=== PATIENT | male | born 1960 | race Caucasian/White ===

== ENCOUNTER 2018-05-29 21:45 | Observation (INO) | payer OTHER ==
[2018-05-29 22:26] LABS: PLATELET COUNT 222 10^3/uL (150-400)
[2018-05-29] MEDS ORDERED: ENOXAPARIN 80 MG/0.8 ML SYR SC ONE (22:28)
[2018-05-29] MEDS ORDERED: DILTIAZEM 25 MG/5 ML VIAL IVP ONE (22:28)
[2018-05-29] MEDS ORDERED: DILTIAZEM 125 MG in D5W 125 ML IV ONE (22:28)
--- NOTE | 2018-05-29 22:33 | EDPHY ---
H & P Stated Complaint: new afib ? factor 5 Time Seen by Provider: 05/29/18 22:00 HPI/ROS: Chief Complaint: Palpitations, chest tightness HPI: 58-year-old male with a history of factor 5 Leiden and a DVT in the remote past, takes a baby aspirin daily. Patient began having palpitations with some mild chest tightness at 7:30 a.m. This evening while at rest. He says in the last 6 months he has had 2 episodes of this. First was not Thanksgiving when he was running a 5 K race. His heart was racing and irregular. This lasted for about a day and then resolved. Patient states 2 days ago while jogging he felt this come on again. It lasted for about an hour and then went away. He says earlier today he knows that his heart way was normal according to his apple watch, rate of about 70-80. Abruptly at 7:30 a.m. While at rest he felt the sudden onset of his heart racing and irregular. Is associated mild tightness with some shortness of breath. Does have a family history of father having atrial fibrillation and factor 5 Leiden as well. No leg pain or swelling. No pleuritic chest pain or significant shortness of breath. No recent travel or periods of immobility. He does not smoke. ROS: 10 systems were reviewed and were negative except those elements noted in the HPI. PMH: Factor 5 Leiden on a baby aspirin a day Social History: No smoking, occasional alcohol, occasional marijuana at bedtime Family History: non-contributory Physical Exam: Gen: Awake, Alert, No Distress HEENT: Nose: no rhinorrhea Eyes: PERRLA, EOMI Mouth: Moist mucosa Neck: Supple, no JVD Chest: nontender, lungs clear to auscultation Heart: S1, S2 normal, irregularly irregular, tachycardic Abd: Soft, non-tender, no guarding Back: no CVA tenderness, no midline tenderness Ext: no edema, non-tender Skin: no rash Neuro: CN II-XII intact, Sensation grossly intact, Strength 5/5 in bilateral upper and lower extremities - Personal History Current Tetanus/Diphtheria Vaccine: Yes Current Tetanus Diphtheria and Acellular Pertussis (TDAP): Yes Tetanus Vaccine Date: 2017 - Medical/Surgical History Hx Asthma: No Hx Chronic Respiratory Disease: No Hx Diabetes: No Hx Cardiac Disease: No Hx Renal Disease: No Hx Cirrhosis: No Hx Alcoholism: No Hx HIV/AIDS: No Hx Splenectomy or Spleen Trauma: No Other PMH: Factor 5, blood clot surgery - Social History Smoking Status: Never smoked Constitutional: Initial Vital Signs Temperature (C) 36.9 C 05/29/18 21:54 Heart Rate 114 H 05/29/18 21:54 Respiratory Rate 18 05/29/18 21:54 Blood Pressure 130/80 H 05/29/18 21:54 O2 Sat (%) 94 05/29/18 21:54 O2 Delivery Mode Room Air Allergies/Adverse Reactions: No Known Allergies Allergy (Unverified 11/20/14 18:19) Home Medications: Medication Instructions Recorded Aspirin 81mg (*) 05/29/18 CALCI-MIX 05/29/18 Co Q-10 05/29/18 Fish Oil 1,000 mg Softgel 05/29/18 Medical Decision Making - Diagnostics EKG Interpretation: ECG time 10:02 p.m.. Atrial fibrillation with a ventricular rate of 160, morphology consistent with LVH, ED Course/Re-evaluation: 58-year-old male with intermittent episodes of atrial fibrillation. Currently in AFib with RVR at this point. He does note that symptoms started right at 7: 30 a.m.. He he does have a history of factor 5 Leiden and takes a baby aspirin. I have discussed the patient with Dr. Orozco, cardiology. He is recommending rate control at this time is the think the patient will likely convert on his own. Admit to the hospital so they can consult him on tomorrow and get an echocardiogram. At that time taking come up with a long-term plan for control of his AFib. I have given the patient a shot of Lovenox here. Will start him on a diltiazem drip with initial 10 mg bolus and titrate according to protocol. - Data Points Laboratory Results: Laboratory Results 05/29/18 22:07 05/29/18 05/29/18 05/29/18 22:11 22:07 22:07 WBC RBC Hgb Hct MCV MCH MCHC RDW Plt Count MPV Neut % (Auto) Lymph % (Auto) Russell % (Auto) Eos % (Auto) Baso % (Auto) Nucleat RBC Rel Count Absolute Neuts (auto) Absolute Lymphs (auto) Absolute Monos (auto) Absolute Eos (auto) Absolute Basos (auto) Absolute Nucleated RBC Immature Gran % Immature Gran # D-Dimer Pending Sodium Pending Potassium Pending Chloride Pending Carbon Dioxide Pending Anion Gap Pending BUN Pending Creatinine Pending Estimated GFR Pending Glucose Pending Calcium Pending POC Troponin I 0.01 ng/mL ng/mL (0.00-0.08) 05/29/18 22:07 WBC 6.01 10^3/uL 10^3/uL (3.80-9.50) RBC 4.67 10^6/uL 10^6/uL (4.40-6.38) Hgb 14.9 g/dL g/dL (13.7-17.5) Hct 42.9 % % (40.0-51.0) MCV 91.9 fL fL (81.5-99.8) MCH 31.9 pg pg (27.9-34.1) MCHC 34.7 g/dL g/dL (32.4-36.7) RDW 12.6 % % (11.5-15.2) Plt Count 222 10^3/uL 10^3/uL (150-400) MPV 8.9 fL fL (8.7-11.7) Neut % (Auto) 53.7 % % (39.3-74.2) Lymph % (Auto) 30.4 % % (15.0-45.0) Russell % (Auto) 14.1 % H % (4.5-13.0) Eos % (Auto) 0.7 % % (0.6-7.6) Baso % (Auto) 0.8 % % (0.3-1.7) Nucleat RBC Rel Count 0.0 % % (0.0-0.2) Absolute Neuts (auto) 3.22 10^3/uL 10^3/uL (1.70-6.50) Absolute Lymphs (auto) 1.83 10^3/uL 10^3/uL (1.00-3.00) Absolute Monos (auto) 0.85 10^3/uL H 10^3/uL (0.30-0.80) Absolute Eos (auto) 0.04 10^3/uL 10^3/uL (0.03-0.40) Absolute Basos (auto) 0.05 10^3/uL 10^3/uL (0.02-0.10) Absolute Nucleated RBC 0.00 10^3/uL 10^3/uL (0-0.01) Immature Gran % 0.3 % % (0.0-1.1) Immature Gran # 0.02 10^3/uL 10^3/uL (0.00-0.10) D-Dimer Sodium Potassium Chloride Carbon Dioxide Anion Gap BUN Creatinine Estimated GFR Glucose Calcium POC Troponin I Point of Care Test Results: Chemistry 05/29/18 22:11 POC Troponin I 0.01 ng/mL ng/mL (0.00-0.08) Departure - Departure Disposition: [facility] Inpatient Acute Clinical Impression: Atrial fibrillation Condition: Fair Referrals: Henry Valerio DO [Primary Care Provider] - As per Instructions
[2018-05-29] MEDS ORDERED: ONDANSETRON 4 MG/2 ML VIAL IVP PRN (22:48)
[2018-05-29] MEDS ORDERED: ACETAMINOPHEN 325 MG TAB PO PRN (22:48)
[2018-05-29] MEDS ORDERED: ONDANSETRON DISINTEGRATING 4 MG TAB PO PRN (22:48)
[2018-05-29] MEDS ORDERED: DILTIAZEM HCL/D5W 125 ML IV SCH (23:00)
[2018-05-29] MEDS ORDERED: DILTIAZEM HCL/D5W 125 ML IV ONE (23:00)
--- NOTE | 2018-05-29 23:44 | PDGENHP ---
History and Physical - Chief Complaint Palpitations - History of Present Illness 58 yo M w/ hx of AF and FVL presents with palpitations. Around 7 PM tonight he noted palpitations. He looked at his fitness watch and noted tachycardia so he came in to the ED. He states this last occurred in March and self-resolved quickly. His only daily medication is an aspirin. Several family members have atrial fibrillation. He last had a blood clot in his right leg in 2001; he has not been on anticoagulation for a long time. Currently he is comfortable but thinks he might have a mild cold noting subjective chills and rhinorrhea. Case discussed with ED physician Dr. Cowan; records reviewed and summarized above. History Information - Allergies/Home Medication List Allergies/Adverse Reactions: No Known Allergies Allergy (Unverified 11/20/14 18:19) Home Medications: Aspirin 81mg (*) 05/29/18 [Last Taken Unknown] CALCI-MIX 05/29/18 [Last Taken Unknown] Co Q-10 05/29/18 [Last Taken Unknown] Fish Oil 1,000 mg Softgel 05/29/18 [Last Taken Unknown] I have personally reviewed and updated: family history, medical history - Past Medical History atrial fibrillation Additional medical history: FVL - Surgical History Reports: no pertinent surgical hx - Family History Additional family history: Atrial fibrillation in father and brother - Social History Smoking Status: Never smoked Review of Systems Review of Systems: ROS: 10pt was reviewed & negative except for what was stated in HPI & below Physical Exam Physical Exam: Temp Pulse Resp BP Pulse Ox 36.9 C 108 H 20 98/70 L 96 05/29/18 23:16 05/29/18 23:16 05/29/18 23:16 05/29/18 23:16 05/29/18 23:16 Constitutional: no apparent distress, not in pain Eyes: PERRL, EOMI Ears, Nose, Mouth, Throat: moist mucous membranes, no oral mucosal ulcers Cardiovascular: irregularly irregular, tachycardia Respiratory: no respiratory distress, clear to auscultation Gastrointestinal: normoactive bowel sounds, soft, non-tender abdomen Skin: warm, normal color Musculoskeletal: full muscle strength, no muscle tenderness Neurologic: AAOx3, CN II-XII Intact Psychiatric: interacting appropriately, not anxious Lab Data & Imaging Review 05/29/18 22:07 05/29/18 22:07 WBC 6.01 10^3/uL (3.80-9.50) 05/29/18 22:07 RBC 4.67 10^6/uL (4.40-6.38) 05/29/18 22:07 Hgb 14.9 g/dL (13.7-17.5) 05/29/18 22:07 Hct 42.9 % (40.0-51.0) 05/29/18 22:07 MCV 91.9 fL (81.5-99.8) 05/29/18 22:07 MCH 31.9 pg (27.9-34.1) 05/29/18 22:07 MCHC 34.7 g/dL (32.4-36.7) 05/29/18 22:07 RDW 12.6 % (11.5-15.2) 05/29/18 22:07 Plt Count 222 10^3/uL (150-400) 05/29/18 22:07 MPV 8.9 fL (8.7-11.7) 05/29/18 22:07 Neut % (Auto) 53.7 % (39.3-74.2) 05/29/18 22:07 Lymph % (Auto) 30.4 % (15.0-45.0) 05/29/18 22:07 [place] % (Auto) 14.1 % (4.5-13.0) H 05/29/18 22:07 Eos % (Auto) 0.7 % (0.6-7.6) 05/29/18 22:07 Baso % (Auto) 0.8 % (0.3-1.7) 05/29/18 22:07 Nucleat RBC Rel Count 0.0 % (0.0-0.2) 05/29/18 22:07 Absolute Neuts (auto) 3.22 10^3/uL (1.70-6.50) 05/29/18 22:07 Absolute Lymphs (auto) 1.83 10^3/uL (1.00-3.00) 05/29/18 22:07 Absolute Monos (auto) 0.85 10^3/uL (0.30-0.80) H 05/29/18 22:07 Absolute Eos (auto) 0.04 10^3/uL (0.03-0.40) 05/29/18 22:07 Absolute Basos (auto) 0.05 10^3/uL (0.02-0.10) 05/29/18 22:07 Absolute Nucleated RBC 0.00 10^3/uL (0-0.01) 05/29/18 22:07 Immature Gran % 0.3 % (0.0-1.1) 05/29/18 22:07 Immature Gran # 0.02 10^3/uL (0.00-0.10) 05/29/18 22:07 D-Dimer 0.40 ug/mLFEU (0.00-0.50) 05/29/18 22:07 Sodium 139 mEq/L (135-145) 05/29/18 22:07 Potassium 4.1 mEq/L (3.5-5.2) 05/29/18 22:07 Chloride 106 mEq/L (97-110) 05/29/18 22:07 Carbon Dioxide 23 mEq/l (22-31) 05/29/18 22:07 Anion Gap 10 mEq/L (6-14) 05/29/18 22:07 BUN 20 mg/dL (7-23) 05/29/18 22:07 Creatinine 0.9 mg/dL (0.7-1.3) 05/29/18 22:07 Estimated GFR > 60 05/29/18 22:07 Glucose 110 mg/dL (70-100) H 05/29/18 22:07 Calcium 9.7 mg/dL (8.5-10.4) 05/29/18 22:07 Magnesium 2.1 mg/dL (1.6-2.3) 05/29/18 22:07 POC Troponin I 0.01 ng/mL (0.00-0.08) 05/29/18 22:11 Visualized and Interpreted EKG results: Yes EKG Interpretation: Positive for: other (AF w/ RVR) Assessment & Plan Assessment: 58 yo M w/ AF and FVL presents with AF w/ RVR. Plan: 1. Paroxysmal AF w/ RVR - Episode onset around 7 PM on night of admission; no prior incidents since March. The patient is only on ASA as outpatient w/ [id number] of 0. - Admit to PCU for observation - Monitor on telemetry - Obtain TTE - Diltiazem gtt - S/p Lovenox SQ x1, will redose in the morning as well - Cardiology consulted in the ED, will see patient in the morning - NPO @ MN in case he requires cardioversion 2. Hx FVL - With DVT in 2001, he has not been on AC for many years without any subsequent clots. Diet - NPO @ MN Code - Full Ppx - Lovenox therapeutic dosing Dispo - Admit under observation status
--- NOTE | 2018-05-30 00:33 | CPEKG ---
Test Reason : OPEN Blood Pressure : / mmHG Vent. Rate : 160 BPM Atrial Rate : 154 BPM P-R Int : 109 ms QRS Dur : 092 ms QT Int : 289 ms P-R-T Axes : 262 078 -21 degrees QTc Int : 472 ms Atrial fibrillation Left ventricular hypertrophy Repolarization abnormality, prob rate related Confirmed by Gary Cowan ([id number]) on 05/30/2018 12:32:43 AM Referred By: Confirmed By:Gary Cowan
[2018-05-30 05:06] LABS: PLATELET COUNT 193 10^3/uL (150-400)
[2018-05-30 07:24] VITALS: BP 120/71
[2018-05-30] MEDS ORDERED: ENOXAPARIN 80 MG/0.8 ML SYR SC ONE (09:00)
[2018-05-30] MEDS ORDERED: METOPROLOL TARTRATE 25 MG TAB PO SCH (10:15)
--- NOTE | 2018-05-30 10:55 | ECHO ---
[email or web address] [address] [address] Main: [phone] Fax: Transthoracic Echocardiogram Name: ETHAN PEGUERO MR#: [id number] Study Date: 05/30/2018 Study Time: 07:27 AM Date of : 1960 Age: 58 year(s) Height: 190.5 cm (75 in.) Weight: 69.85 kg (154 lb.) BSA: 1.96 m2 Gender: Male Examination: Echo Indication: Atrial Fibrillation Image Quality: Adequate Contrast: Requested by: Bryant Martinez BP: 120 mmHg/71 mmHg Heart Rate: Rhythm: Indication: Atrial Fibrillation Procedure [facility] Consultant: Katelynn Palomino RDCS Reading Physician: Trang Ham MD Requesting Provider: Conclusions: Normal size left ventricle. No LV hypertrophy. Normal global systolic LV function. The ejection fraction is estimated to be 60-65 %. No regional wall motion abnormality. Normal diastolic LV function. Normal size right ventricle. Normal RV function. Mild mitral valve regurgitation is present. Mild tricuspid regurgitation is present. The pulmonary artery pressure is normal. No prior echo Measurements: Chambers Valvular Assessment AV/MV Valvular Assessment TV/PV Normal Normal Normal Name Value Range Name Value Range Name Value Range Ao Valeria (2D): 3.7 cm (1.4 cm-2.6 AV Vmax: 95.00 m/s (1 m/s-1.7 TR Vmax: 2.19 mm/s ( - ) cm) m/s) TR PGmax: 19 mmHg ( - ) IVSd (2D): 0.8 cm (0.6 cm-1.1 AV meanP mmHg ( - ) syst. PAP: 24 mmHg ( - ) cm) MV E Vmax: 0.48 m/s ( - ) LVDd (2D): 4.7 cm (4.2 cm-5.9 MV A Vmax: 0.44 m/s ( - ) cm) MV E/A: 1.09 ( - ) LVDs (2D): 3.0 cm (2.1 cm-4 cm) LVPWd (2D): 0.8 cm (0.6 cm-1 cm) LVEF (BP): 68 % (>=55 %) EF Range: 60-65 % Patient: ETHAN PEGUERO Study Date: 05/30/2018 Page 1 of 2 07:27 AM Continued Measurements: Chambers Valvular Assessment AV/MV Valvular Assessment TV/PV Name Value Name Value Name Value LADs: 3.2 cm MV E' Septal: 0.07 m/s CVP (est.): 5 mmHg LADs Lon.3 cm MV E/E' Septal: 7.10 LA Area: 21.2 cm2 MV E/E' Lateral: 5.10 LA Volume: 52 ml LA Volume Index: 26.5 ml/m2 Additional Vessels Name Value Ao Ascendin.2 cm Findings: Left Ventricle: Normal size left ventricle. No LV hypertrophy. Normal global systolic LV function. The ejection fraction is estimated to be 60-65 %. No regional wall motion abnormality. Normal diastolic LV function. Right Ventricle: Normal size right ventricle. Normal RV function. Left Atrium: The left atrium is normal in size. Right Atrium: The right atrium is normal in size. Mitral Valve: The mitral valve is normal in appearance and function. Mild mitral valve regurgitation is present. Aortic Valve: The aortic valve is normal in appearance and function. The aortic valve is tri-leaflet. Trivial aortic valve regurgitation. Tricuspid Valve: The tricuspid valve is normal in appearance and function. Mild tricuspid regurgitation is present. The pulmonary artery pressure is normal. Pulmonic Valve: Pulmonary valve not well visualized. Aorta: The aorta is normal. Pericardium: No pericardial effusion. (No Signature Object) Patient: ETHAN PEGUERO Study Date: 05/30/2018 Page 2 of 2 07:27 AM [id number]
--- NOTE | 2018-05-30 11:34 | HOSPPROG ---
Hospitalist Progress Note Assessment/Plan: 58 yo M w pAF here w rcurrent AF now in sinus home today see dc summary Subjective: in sinus. tolerated BB Objective: Vital Signs Temp Pulse Resp BP Pulse Ox 37.0 C 70 12 120/71 96 05/30/18 07:24 05/30/18 07:24 05/30/18 07:24 05/30/18 07:24 05/30/18 07:24 Laboratory Results 05/30/18 04:20 05/30/18 04:20 05/29/18 05/30/18 05/31/18 05:59 05:59 05:59 Intake Total 260 Balance 260 - Physical Exam Constitutional: no apparent distress, appears nourished Eyes: PERRL, anicteric sclera Ears, Nose, Mouth, Throat: moist mucous membranes, hearing normal Cardiovascular: regular rate and rhythym, no murmur, rub, or gallop, No systolic murmur Respiratory: no respiratory distress, no rales or rhonchi Gastrointestinal: normoactive bowel sounds, soft, non-tender abdomen Genitourinary: no bladder fullness Skin: warm, normal color Musculoskeletal: full muscle strength Neurologic: AAOx3 ICD10 Worksheet Patient Problems: Problems Problem Status Onset Atrial fibrillation Acute
--- NOTE | 2018-05-30 12:08 | ASDISCHSUM ---
Discharge Information Plan Status:Home with No Needs Medically Cleared to Leave:05/29/2018 Discharge Date:05/29/2018 CM D/C Disposition:Home, Routine, Self-Care ADT D/C Disposition: Projected Discharge Date:05/29/2018 Transportation at D/C: Discharge Delay Reason: Follow-Up Date:05/29/2018 Discharge Slot: Final Diagnosis: Placement Information Patient Contact Information Contact Name:FELIPE Relationship: Address: Work Phone: City:[place] Alternate Phone: [facility] Code:FARIDA Email: Financial Information Financial Class:BCOP Primary Plan Desc:HELDER SRIVASTAVA PPO O Primary Plan Number:[id number] Secondary Plan Desc: Secondary Plan Number: Assessment Information LACE LACE Length of stay for Answers: Less than 1 day current admission Acuity / Level of Answers: No Care: Did the patient have an inpatient admission? Comorbidities - select Answers: Other Notes: Factor 5 Leiden; Hx of all that apply DVT # of Emergency department Answers: 1-2 visits in the last 6 months Score: 2 Date Signed: 05/30/2018 12:06 PM Electronically Signed By:Adri Ariza RN Intervention Information
--- NOTE | 2018-05-30 12:12 | GCON ---
DATE OF CONSULTATION: 05/30/2018 REFERRING PHYSICIAN: Bryant Angel MD REASON FOR CONSULTATION: We are asked by Dr. Angel to evaluate the patient for his new onset a trial fibrillation. HISTORY OF PRESENT ILLNESS: The patient is a 58-year-old male with a past medical history of prediab etes who was admitted yesterday for new onset atrial fibrillation. He reports that in March, he s tarted to note palpitations. At that time, he started training for their turkey trot, which is a 5 K race. With some of his runs, he would note that his heart rate would increase above the typical ran ge on his apple watch. Additionally, he would note associated tingling in his cheeks and fingers and would feel presyncopal. After the work outs, he would note feeling like his heart was tired and he had over-exerted. He reports 4/6 of the training runs that he did would have those symptoms. On the day of the turkey trot, which he ran in [place], approximately 1.2 miles into the race, he felt his heart was racing. Due to this, he stopped running and walked the rest of the race. This past Monday again, he had gone for run and 7 minutes into the run, he felt like his heart rate was increased. W ith stopping running and walking, symptoms seem to subside. He admits to having higher stress recent ly. His mother has and there have been issues with her estate, which has increased his s tress level. When he does feel that he is under stress, his heart is racing and irregular. Yesterda y, he had returned home after a happy hour and started to note that his heart was racing. Due to marco a oing symptoms, he presented to the emergency department, was found to be in new onset atrial fibrilla tion. At approximately 2347, he converted to sinus rhythm. Currently, he reports feeling well. He denies any recent viral illness. He consumes 3 to 4 ounces o f wine or beer 3 to 4 times a week. He does not feel he has sleep apnea. He is lives alone. He typ ically gets physicals with his primary care physician. He usually gets annual labs through [facility]. PAST MEDICAL HISTORY: 1. Paroxysmal atrial fibrillation. 2. Prediabetes with last A1c measured at 6%. 3. Heterozygote for factor V Leiden mutation. 4. Previous DVT in 2001, treated with warfarin. PAST SURGICAL HISTORY: Previous vasectomy. SOCIAL HISTORY: Patient is a never smoker. He is retired. He used to work as an explosive expert. FAMILY HISTORY: Atrial fibrillation in father. He at age 86 of dementia and other medical prob lems. He is the oldest of 6 boys and the second oldest has paroxysmal atrial fibrillation. His moth er at age 78. She had diabetes. REVIEW OF SYSTEMS: As per HPI. A complete 10-point review of systems was obtained and is negative, except for what is dictated in HPI. OUTPATIENT MEDICATIONS: Include fish oil, aspirin. ALLERGIES: No known drug allergies. PHYSICAL EXAMINATION: VITAL SIGNS: BP of 120/71, heart rate of 70, respirations 12, O2 saturation 9 6% on room air, temp of 98.6 degrees Fahrenheit. GENERAL: He is a very pleasant male in no apparent distress. HEENT: Normocephalic, atraumatic. Eyes without scleral icterus. NECK: Supple with no JVD. No carotid bruits. HEART: Regular rate and rhythm. No rubs, gallops, or murmurs. LUNGS: Cl ear to auscultation bilaterally. ABDOMEN: Soft with normoactive bowel sounds. : With no Edwards p resent. SKIN: Warm and dry with no edema present. PSYCH: Normal mood and affect for given situati on. NEURO: No focal deficits detected. LABORATORY/IMAGING: BMP with sodium 136, potassium 3.8, chloride 105, CO2 26, BUN 18, creatinine 0.8 , glucose 105. Troponin less than 0.01. Magnesium 2. WBC of 3.73, hemoglobin 13.8, hematocrit 40.5 , platelet count of 193. He had a 12-lead ECG personally interpreted demonstrates atrial fibrillation with rapid ventricular r ates at 160. There is LVH by voltage. I discussed the patient's care with Dr. Oneal Love. Telemetry shows conversion to sinus rhythm a nd maintenance since 2346. Before that, he was having atrial fibrillation, RVR. IMPRESSION/PLAN: The patient is a 58-year-old male who presents with palpitations. 1. Paroxysmal atrial fibrillation. He has converted to sinus rhythm. He reports onset of symptoms of palpitations since March. We discussed several options. Given his onset of symptoms with exer tion and stress, we will start him on low-dose metoprolol at 12.5 b.i.d. We reviewed possible side e ffects. He will be enrolled in our Atrial Fibrillation Clinic for future management of this. 2. Prediabetes. This has been managed with diet. He is on no hypoglycemic agents at this point. 3. CHADS2-VASc of 0 to 1. We will continue with aspirin for thromboembolic prophylaxis. /[id number]/MODL
--- NOTE | 2018-05-30 22:27 | GDS ---
DISCHARGE DIAGNOSES: 1. Paroxysmal atrial fibrillation. 2. Factor V Leiden. Please see admission history and physical by Dr. Bryant Angel. Patient presented with palpit ation consistent with his prior episodes of A-fib. He is an avid runner, but it sounds like it is mo derate in nature. 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 He had negative troponins and nonischemic EKG. Started on diltiazem drip. Converted on his own. TSH is pending. He is started on a beta fernie. [id number]. He takes a baby aspirin. He is discharged home with outpatient followup in the A- fib clinic. /[id number]/MODL
== END 2018-05-30 12:40 | disposition home or self-care (01) ==
LOC: F2W 23:33
PROVIDERS: ADMIT Student in an Organized Health Care Education/Training Program; ATTEND Internal Medicine
DX: I48.0 Paroxysmal atrial fibrillation (principal); D68.2 Hereditary deficiency of other clotting factors; Z86.718 Personal history of other venous thrombosis and embolism; Z82.49 Family history of ischemic heart disease and other diseases of the circulatory system
CPT/HCPCS: 93005; 93306; 96372; 96374; 99285; G0378; 84484-ER; J1650

== ENCOUNTER → 2018-08-22 | Outpatient (CLI) | payer OTHER ==
[~2018-08-22] MED LIST: IOPAMIDOL (ISOVUE 370) 100 ML BTL IV ONE
== END ==
LOC: FIMAGING 08:34
PROVIDERS: ATTEND Internal Medicine Cardiovascular Disease
DX: I48.91 Unspecified atrial fibrillation (principal)
CPT/HCPCS: Q9967

== ENCOUNTER 2018-08-28 10:43 | Observation (INO) | payer OTHER ==
[2018-08-28] MEDS ORDERED: NS 1,000 ML IV ONE (10:49)
[2018-08-28 11:29] LABS: PLATELET COUNT 196 10^3/uL (150-400)
[2018-08-28 11:41] LABS: INR 1.05 (0.83-1.16); PROTIME(PATIENT) 13.3 SEC (12.0-15.0)
[2018-08-28] MEDS ORDERED: HEPARIN/DEXTROSE 25,000 UNIT/500 ML BAG ONE (12:41)
[2018-08-28] MEDS ORDERED: BUPIVACAINE 0.75% 10 ML SDV ONE (12:41)
[2018-08-28] MEDS ORDERED: IOPAMIDOL (ISOVUE-300) 100 ML BTL ONE (12:41)
[2018-08-28] MEDS ORDERED: LIDOCAINE 1% 300 MG/30 ML SDV ONE (12:41)
[2018-08-28] MEDS ORDERED: MIDAZOLAM 2 MG/2 ML VIAL IVP ONE (12:46)
--- NOTE | 2018-08-28 12:48 | PDANEPAE ---
ANE History of Present Illness here for AF/CARLYLE ablation ANE Past Medical History Past Medical History: factor v leiden, history of DVT - Cardiovascular History Hx Hypertension: No Hx Arrhythmias: Yes Hx Chest Pain: No Hx Coronary Artery / Peripheral Vascular Disease: No Hx CHF / Valvular Disease: No Hx Palpitations: No - Pulmonary History Hx COPD: No Hx Asthma/Reactive Airway Disease: No Hx Recent Upper Respiratory Infection: No Hx Oxygen in Use at Home: No Hx Sleep Apnea: No - Neurologic History Hx Cerebrovascular Accident: No Hx Seizures: No Hx Dementia: No - Endocrine History Hx Diabetes: No - Renal History Hx Renal Disorders: No - Liver History Hx Hepatic Disorders: No - Neurological & Psychiatric Hx Hx Neurological and Psychiatric Disorders: No - Chronic Pain History Chronic Pain: No ANE Review of Systems Review of systems is: negative Review of Systems: - Exercise capacity Exercise capacity: >=4 METS ANE Patient History - Allergies Allergies/Adverse Reactions: No Known Allergies Allergy (Verified 08/21/18 14:40) - Home Medications Home medications: home medication list seen and reviewed Home Medications: Aspirin [Aspirin 81mg (*)] 81 mg PO DAILY 05/30/18 [Last Taken 05/29/18] Herbals/Supplements -Info Only 1 ea PO DAILY 05/30/18 [Last Taken 05/29/18] Apixaban [Eliquis] 5 mg PO BID 08/21/18 [Last Taken Unknown] Omeprazole 40 mg PO DAILY 08/21/18 [Last Taken Unknown] - NPO status NPO Status: no food or drink >8 hours - Anes Hx Anes Hx: no prior problems - Smoking Hx Smoking Status: Never smoked ANE Labs/Vital Signs - Labs Result Diagrams: 08/28/18 11:15 08/28/18 11:15 - Vital Signs Vital Signs: reviewed preoperatively; see RN documention for details Height: 190.5 cm Weight: 69.4 kg ANE Physical Exam - Airway Neck exam: FROM Mallampati Score: Class 1 - Pulmonary Pulmonary: no respiratory distress - Cardiovascular Cardiovascular: regular rate and rhythym - ASA Status ASA Status: II ANE Anesthesia Plan Anesthesia Plan: general endotracheal anesthesia
[2018-08-28] MEDS ORDERED: HEPARIN 10,000 UNIT/10 ML MDV (1,000 UNIT/ML) ONE (12:51)
[2018-08-28] MEDS ORDERED: MIDAZOLAM 2 MG/2 ML VIAL ONE (12:52)
--- NOTE | 2018-08-28 13:01 | PDGENHP ---
History & Physical Chief Complaint: Atrial fibrillation and atrial flutter History of Present Illness: Paroxysmal atrial fibrillation and atrial flutter, symptomatic Relevant Physical Exam: A&Ox4, no apparent distress, lungs CTA, regular rate and rhythm, S1, S2, pulses 2+ bilaterally, no edema Cardiorespiratory Assessment: Proceed with AF and atrial flutter ablation as planned for today
[2018-08-28] MEDS ORDERED: PROPOFOL/EMULSION 500 MG/50 ML BOTTLE IV ONE ×2 (13:02→14:21)
[2018-08-28] MEDS ORDERED: fentaNYL 100 MCG/2 ML INJ ONE ×2 (13:03→14:15)
[2018-08-28] MEDS ORDERED: PHENYLEPHRINE HCL 100 MCG/ML SYR ONE (14:16)
[2018-08-28] MEDS ORDERED: ePHEDrine SULFATE 25 MG/5 ML SYR ONE ×2 (14:16→14:52)
--- NOTE | 2018-08-28 14:45 | CPEKG ---
Test Reason : OPEN Blood Pressure : / mmHG Vent. Rate : 072 BPM Atrial Rate : 070 BPM P-R Int : 166 ms QRS Dur : 090 ms QT Int : 390 ms P-R-T Axes : 076 082 055 degrees QTc Int : 427 ms Sinus rhythm Confirmed by Christophe Huerta ([id number]) on 08/28/2018 2:44:53 PM Referred By: Douglas Vega Confirmed By:Christophe Huerta
[2018-08-28] MEDS ORDERED: PROTAMINE SULFATE 50 MG/5 ML VIAL IVP ONE (15:04)
--- NOTE | 2018-08-28 16:31 | EPPROC ---
Electrophysiology Procedure Note: ELECTROPHYSIOLOGIC STUDY AND BALLOON-CATHETER MEDIATED CRYOABLATION FOR PAROXYSMAL ATRIAL FIBRILLATION AND ATRIAL FLUTTER Procedures performed: 02453-98 EP evaluation with RA/RV/LA pace/record, with arrhythmia induction 94259-05 EP evaluation with RA/RV pace record, insert/reposition catheter, with arrhythmia induction 83084 Atrial fibrillation ablation Second arrhythmia Intracardiac echocardiogram Transseptal puncture Fluoroscopy INDICATION: Paroxysmal atrial fibrillation Atrial flutter PROCEDURE: The patient arrived in the Electrophysiology Laboratory in the fasting state. The right groin, left groin and right infraclavicular area were prepped and draped in the usual sterile fashion. Anesthesiologist administered general anesthesia Dr. Hemalatha Nicole. All catheters were placed percutaneously using the Seldinger technique and advanced into position under fluoroscopic guidance. One #7 [place] deflectable octapolar electrode catheter was placed in the His-bundle position via the left femoral vein (2mm spacing, IVC electrode for unipolar recordings). This catheter was placed in the coronary sinus after transseptal puncture and later placed in the SVC-R subclavian vein junction to pace the right phrenic nerve during right pulmonary vein ablation. One #8 [place] AcuNaV ultrasound catheter was placed in the left femoral vein and advanced into the right atrium. Programmed stimulation was performed from the right atrium, left atrium (CS) and right ventricle. Intracardiac echo evaluation of the left atrium and pulmonary veins was performed. Baseline ACT was drawn and heparin bolus was administered and heparin drip was started prior to transseptal puncture. ACT was checked every 15 minutes and maintained in the range of 350-400 seconds. One 14Fr short sheath was placed in the right femoral vein. One 8Fr SL1 sheath was advanced into the right atrium via the 14Fr short sheath. Transseptal puncture was performed under intracardiac ultrasound, fluoroscopic and hemodynamic guidance placing the sheath into the left atrium. ePrimeCare RF needle ( C0 curve) was used. The mean left atrial pressure was 20 mmHg. The SL1 sheath was exchanged for a Medtronic Flexcath sheath using an Amplatz stiff guide wire. A 28 mm Cryoballoon catheter with a 20 mm Achieve catheter was placed via the sheath into the left atrium. Intracardiac ultrasound and PV angiograms were used to assist in placing the mapping catheter at the antrum of the pulmonary veins. All pulmonary veins were isolated successfully using cryoballoon ablation using freeze/thaw/freeze cycles at 2-3-minute intervals, with good [id number] of isolation. Coumadin ridge/Ligament of [place] region was ablated. Pre and post pulmonary vein recordings were measured on the spiral Achieve catheter to ensure complete pulmonary vein isolation. During the right-sided ablation, phrenic nerve pacing was performed to assess the phrenic nerve strength ( manually and with ICE visualization of liver movement during phrenic capture) and the phrenic nerve was intact throughout the right-sided ablation and at the end of the procedure. An esophageal temperature probe (12 electrode, Circa) was placed by the anesthesiologist at the beginning of the procedure. Esophageal temperature was monitored continuously and cryoablation was interrupted if esophageal temperature was <15 C. Cryoapplications 8 total cryoablation time 1203 s. Post AFIB ablation, sheath was changed to Mobi sheath , 3D and ICE map of CT isthmus obtained and ablation performed in the CT isthmus at 0630 as seen in the BELARUSIAN view. Halo catheter was placed prior along TA. Bidirectional conduction block was achieved but patient did develop AF that required DCCV x 3. Ablation was difficult since CT isthmus was small with a subeustachian pouch. ICE imaging post ablation was consistent with pre ablation imaging with no changes noted, moreover there was no left atrial/left ventricular thrombus and no pericardial effusion. The catheters were withdrawn. Protamine was given. Venous vascular access sheaths were removed in the EP lab after placing subcutaneous pursestring suture. The patient was recovered from anesthesia. There were no complications. The patient was arousable and moving all four extremities at the end of the procedure. CONCLUSIONS: 1. Early persistent atrial fibrillation. 2. Successful pulmonary vein isolation procedure (left and right pulmonary vein antrum) using cryoballoon ablation. 3. Cavotricuspid isthmus ablation for atrial flutter, bidirectional block achieved. 4. No apparent complications. Patient Problems: Problems Problem Status Onset Atrial fibrillation Acute
--- NOTE | 2018-08-28 17:04 | POSTANESTH ---
Post Anesthetic Evaluation Cardiovascular Status: Normal, Stable Respiratory Status: Normal, Stable Level of Consciousness/Mental Status: Can Participate in Eval Pain Control: Adequate, Prn Tx Ordered Nausea/Vomiting Control: Adequate, Prn Tx Ordered Complications Possibly Related to Anesthesia: None Noted
[2018-08-28 19:46] LABS: PLATELET COUNT 176 10^3/uL (150-400)
[2018-08-28] MEDS ORDERED: NS BOLUS 500 ML (Wide open) IV ONE ×2 (20:00→20:30)
[2018-08-28] MEDS: APIXABAN 5 MG TAB PO SCH (21:21)
[2018-08-28 23:58] LABS: PLATELET COUNT 162 10^3/uL (150-400)
[2018-08-29] MEDS ORDERED: NS 1,000 ML IV ONE (01:30)
[2018-08-29 06:18] LABS: PLATELET COUNT 160 10^3/uL (150-400)
[2018-08-29] MEDS: APIXABAN 5 MG TAB PO SCH (08:04)
[2018-08-29 08:07] VITALS: BP 107/72
[2018-08-29] MEDS ORDERED: PANTOPRAZOLE SODIUM 40 MG TAB PO SCH (09:00)
--- NOTE | 2018-08-29 09:10 | CPEKG ---
Test Reason : OPEN Blood Pressure : / mmHG Vent. Rate : 086 BPM Atrial Rate : 086 BPM P-R Int : 140 ms QRS Dur : 099 ms QT Int : 380 ms P-R-T Axes : -30 080 036 degrees QTc Int : 455 ms Sinus rhythm Supraventricular bigeminy Confirmed by Christophe Huerta ([id number]) on 08/29/2018 9:10:08 AM Referred By: Douglas Vega Confirmed By:Christophe Huerta
--- NOTE | 2018-08-29 09:12 | CPEKG ---
Test Reason : OPEN Blood Pressure : / mmHG Vent. Rate : 087 BPM Atrial Rate : 087 BPM P-R Int : 127 ms QRS Dur : 089 ms QT Int : 364 ms P-R-T Axes : 003 080 051 degrees QTc Int : 438 ms Sinus rhythm Minimal ST elevation, inferior leads Confirmed by Christophe Huerta ([id number]) on 08/29/2018 9:12:11 AM Referred By: Douglas Vega Confirmed By:Christophe Huerta
--- NOTE | 2018-08-29 12:14 | GDS ---
[f rep st] DISCHARGE SUMMARY SUPERVISING SPECIALIST PHYSICIANS: Dr. Douglas Vega ADMISSION DIAGNOSES: 1. Atrial fibrillation. 2. Atrial flutter. 3. Factor V Leiden. 4. History of deep venous thrombosis and pulmonary embolism. DISCHARGE DIAGNOSES: 1. Atrial fibrillation and atrial flutter, status post ablation. 2. Factor V Leiden. 3. History of deep venous thrombosis and pulmonary embolism. PROCEDURES PERFORMED DURING HOSPITALIZATION: 1. Electrocardiogram. 2. Echocardiogram. 3. Electrophysiology study. 4. Atrial flutter ablation. 5. Cryoballoon pulmonary vein isolation for atrial fibrillation. HOSPITAL COURSE: Patient presented 08/28/2018, for atrial fibrillation, atrial flutter ablation in t he setting of increasingly frequent and symptomatic episodes of atrial arrhythmias. Patient underwen t successful radiofrequency ablation of his cavotricuspid isthmus and successful cryoballoon pulmonar y vein isolation. He had no intraprocedure complications and he has done very well in the postproced ure setting. He had brief episodes of PACs and narrow complex tachycardia on his radiation monitor o vernight, although these episodes have decreased in frequency as of this morning. He is appropriate and stable for discharge home today. PHYSICAL EXAMINATION: GENERAL: Alert and oriented x4 in no apparent distress. VITAL SIGNS: Blood pressure 107/72, heart rate 85, respiratory rate 20, SpO2 95% on room air, temp 37.2 degrees Celsius. RESPIRATORY: Lungs are clear to auscultation without adventitious breath sounds. CARDIAC: Regula r rate and rhythm, S1, S2. No murmurs, gallops, or rubs. ABDOMEN: Normoactive bowel sounds times a ll 4 quadrants. No masses. No tenderness. Soft, palpitations. SKIN: [place], warm, dry without cyan osis or clubbing. EXTREMITIES: Bilateral purse string sutures removed intact without evidence of he matoma, redness, oozing, swelling, or warmth. Pulses are 2+ bilaterally. No edema. LABORATORY STUDIES: Drawn today demonstrate stable CBC and BMP compared to preprocedure. Troponin i s 13.4, please note the elevated troponin is to be expected in the postprocedure setting. PROCEDURES: Electrophysiology study, atrial fibrillation ablation, and atrial flutter ablation as me ntioned above. Preliminary review of echocardiogram this morning demonstrates normal left ventricular systolic funct ion without any wall motion abnormalities or pericardial effusion. Electrocardiogram this morning demonstrates normal sinus rhythm without any ST-T wave or ID interval abnormalities. DISCHARGE DISPOSITION: Patient will be discharged home in stable condition. He is under activity re strictions as below. DISCHARGE MEDICATIONS: Please see discharge medication reconciliation sheet for full details. Alan malave note that the patient has been restarted on his Eliquis 6 hours post procedure, he will continue th is for at least the next 3 months uninterrupted. He will also take omeprazole daily for 6 weeks for GI prophylaxis. DISCHARGE INSTRUCTIONS: Post atrial flutter and atrial fibrillation instructions reviewed with marky wharton in detail. 1. We discussed activity restrictions, including lifting no more than 10 pounds and avoidance of sub merged bathing for 10 days. 2. He will get up and walk around every 45 minutes for 45 days. 3. He will avoid unpressurized air travel or scuba diving for the next 6 months, and he will present to our clinic for an echocardiogram with a bubble study prior to engaging in either of these activit ies. 4. We also reviewed bleeding precautions, medication compliance, monitoring for signs and symptoms o f infection, monitoring for atrioesophageal fistula, and monitoring sustained arrhythmia. At the time of discharge, patient verbalizes understanding regarding all discharge instructions witho ut questions or concerns. He has a followup visit scheduled in 2 weeks, and he will contact [facility] with any new or concerning symptoms prior to his upcoming visit. Time spent on discharge greater than 30 minutes. /[id number]/MODL
--- NOTE | 2018-08-29 13:09 | ECHO ---
[email or web address] [address] [address] Main: [phone] Echocardiography Examination Transthoracic Name: ETHAN PEGUERO MR#: [id number] Study Date: 08/29/2018 Study Time: 09:29 AM Date of : 1960 Age: 58 year(s) Height: 170.2 cm (67 in.) Weight: 69.85 kg (154 lb.) BSA: 1.81 m2 Gender: Male Examination: Echo Contrast: Image Quality: Rhythm: Normal sinus rhythm Heart Rate: 90 bpm BP: 116 mmHg/76 mmHg Indication: Post Ablation Procedure Staff Referring Physician: Mechanical Meter Tester: Alessandro Hernández RDCS Reading Physician: Rick Nguyen MD Requesting Provider: Ordering Physician: Douglas Vega MD Indication: Post Ablation Measurements Chambers AV/MV Label Value Normal Value Label Value Normal Value LVOT Vmax 0.86 m/s (0.7m/s - 1.1m/s) AV PGmax 4 mmHg LVOTd 2 cm (1.9cm - 2.1cm) AV PGmean 3 mmHg LVOT VTI 16.7 cm (18cm - 22cm) AV Vmax 1.05 m/s LVDd, 2D 4.6 cm (4.2cm - 5.9cm) JONNIE (Vmax) 2.6 cm2 LVDs, 2D 2.7 cm (2.1cm - 4cm) JONNIE (VTI) 2.6 cm2 IVSd, 2D 0.7 cm (0.6cm - 1.1cm) MV E Vmax 0.72 m/s LVPWd, 2D 0.9 cm (0.6cm - 1cm) MV A Vmax 0.54 m/s LVEF, 2D 72 % (54% - 74%) MV E/A 1.33 LVOT PGmean 2 mmHg MV E/E' lateral 6.6 LVOT Vmean 0.54 m/s MV E/E' septal 9.7 (0.5 - 1.7) RVDd, 2D 2.3 cm (1.9cm - 3.8cm) MV E' septal 0.07 m/s RA Area 16 cm2 MR Vena Contracta 0.4 cm MV E' lateral 0.11 m/s MV E/E' mean 8 MV E' mean 0.09 m/s TV/PV Label Value Normal Value RA Pressure 5 mmHg RVSP 32 mmHg Patient: ETHAN PEGUERO Study Date: 08/29/2018 Page 1 of 2 09:29 AM TR Pmax 27 mmHg TR Vmax 2.61 m/s PV PGmax 3 mmHg PV Vmax, Caliper 0.84 m/s (0.6m/s - 0.9m/s) Conclusions Left Ventricle: EF range is estimated at 70 % - 75 %. Mitral Valve: Trivial to mild mitral regurgitation. Tricuspid Valve: Trivial tricuspid regurgitation. Right Ventricular systolic pressure is measured at 32 mmHg. Findings Left Ventricle: Left ventricle is normal in size. Normal global systolic left ventricular function. EF range is estimated at 70 % - 75 %. Left ventricle wall thickness is normal. There are no regional wall motion abnormalities. Left ventricular diastolic function parameters are normal. Right Ventricle: Normal size right ventricle. Right ventricular systolic function is normal. Left Atrium: The left atrium is normal in size. Right Atrium: The right atrium is normal in size. Mitral Valve: Mitral valve appears structurally normal. Trivial to mild mitral regurgitation. Aortic Valve: Aortic leaflets are normal in appearance and function. No significant aortic valve regurgitation. Tricuspid Valve: Tricuspid valve leaflets are structurally normal. Trivial tricuspid regurgitation. Right Ventricular systolic pressure is measured at 32 mmHg. Pulmonary artery pressure normal. Aorta: The aorta is normal. Pericardium: No pericardial effusion. Exam Details Procedure Ordered: Echo (No Signature Object) Patient: ETHAN PEGUERO Study Date: 08/29/2018 Page 2 of 2 09:29 AM [id number]
--- NOTE | 2018-08-30 06:49 | ECHO ---
[email or web address] [id number] Main: [phone] Echocardiography Examination Transesophageal Name: ETHAN PEGUERO MR#: [id number] Study Date: 08/28/2018 Study Time: 01:28 PM Date of : 1960 Age: 58 year(s) Height: ( ) Weight: ( ) BSA: Gender: Male Examination: PAWAN Contrast: I.V. dose of agitated saline Image Quality: Adequate Rhythm: Heart Rate: BP: / Indication: pre-ablation Procedure Staff Referring Physician: High Rigger: Kassandra Morocho AMOR Reading Physician: Douglas Vega MD Requesting Provider: Ordering Physician: Douglas Vega MD Indication: pre-ablation Acute complication: None Measurements Chambers Label Value Normal Value LVEF, BP 65 % (55% - 70%) Conclusions Normal LV function. No shunt. No LA or YADIRA thrombus. Findings Left Ventricle: Normal global systolic left ventricular function. EF evaluated by visual assessment. The ejection fraction, measured by Simpsons method, is 65 %. Left Atrium: No thrombus is identified in the left atrium. Left Atrium Appendage: No thrombus is identified. IAS: Patient: ETHAN PEGUERO Study Date: 08/28/2018 Page 1 of 2 01:28 PM An agitated saline study was performed and was negative for intracardiac shunting. Mitral Valve: Mitral valve appears structurally normal. Mild mitral regurgitation. Aortic Valve: The aortic valve is structurally normal and trileaflet. No aortic valve regurgitation. Tricuspid Valve: Tricuspid valve leaflets are structurally normal. Trivial tricuspid regurgitation. Pulmonic Valve: Pulmonic leaflets are structurally normal. Exam Details Procedure Ordered: PAWAN Procedure Status: Routine study Image Quality: Adequate Consent: Risks, alternatives of procedure explained to patient, informed consent obtained Probe Insertion: Attending senior cisco network engineer Contrast: I.V. dose of agitated salineIntravenous contrast was administered to evaluate possible L-R intracardiac shunting Facility Location: Cardiac Echo 1 (No Signature Object) Patient: ETHAN EDENN: [id number] Study Date: 08/28/2018 Page 2 of 2 01:28 PM [id number]
== END 2018-08-29 12:40 | disposition home or self-care (01) ==
LOC: FCATH 10:43 → F2N 16:32
PROVIDERS: ADMIT Internal Medicine Cardiovascular Disease; ATTEND Internal Medicine Cardiovascular Disease
DX: I48.0 Paroxysmal atrial fibrillation (principal); I48.92 Unspecified atrial flutter; D68.2 Hereditary deficiency of other clotting factors; Z86.718 Personal history of other venous thrombosis and embolism; Z86.711 Personal history of pulmonary embolism
CPT/HCPCS: 93005; 93306; 93312; 93613; 93655; 93656; 93662; C1730; C1731; C1732; C1733; C1759; C1766; C1893; G0378; J1644; J2250; J2370; J2704; J2720; J3010; Q9967